=== PATIENT | female | born 1940 ===

== ENCOUNTER 2021-09-03 16:44 | Inpatient (IN) | payer OTHER ==
[~2021-09-03] VITALS: Ht 152.4 cm; Wt 54.4 kg
[2021-09-03] MEDS ORDERED: CARVEDILOL ER40 MG (17:16)
[2021-09-03] MEDS ORDERED: ADULT LOW DOSE81 M1 (17:16)
--- NOTE | 2021-09-03 17:37 | NUR ---
SE RECIBE PACIENTE FEMENINA ALERTA Y ORIENTADA EN [place] ESFERAS LA CUAL REFIERE PRESENTAR DIFICULTAD RESPIRATORIOA. SE MIDE SPO2 AL MOMENTO DE TRIAGE Y PRESENTA 53%. SE UBICA PACIENTE EN AREA DE CRITICO. SE NOTIFICA A EDEN CADET.
--- NOTE | 2021-09-03 17:40 | NUR ---
SE RECIBE PTE ALERTA Y ORIENTADA X 3 ESFERAS EN [place] DEL AREA DE TRIAGE A LA UNIDAD DE ICU 2. SE UBICA A PTE EN CAMA 1, SE CONECTA A MONITOR CARDIACO Y OXIMETRIA DE PULSO. SE CANALIZA EN BRAZO DERECHO AREA [place] DE EDEMA Y ERITEMA. SE REALIZAN MUESTRAS DE LABORATORIO BAJO MEDIDAS ASEPTICAS. SE INTENTA ALEX B/P POR MONITOR Y NO EL MISMO NO CRISTY LA MISMA. CRISTY B/P MANUAL Y PTE PRESENTA 65/45MMHG. EDEN.CADET ORDENA ADMINISTRAR LEVOPHED 8MG/DW5 250ML A BAJAR A 10ML/HR.SE ADMINISTRA MEDICAMENTO NORMA ORDEN MEDICA. SE REALIZA EKG.
--- NOTE | 2021-09-03 18:10 | NUR ---
EVALUA PTE. SE ADMINISTRA SOLUMEDROL 125MG IV NORMA ORDEN MEDICA. SE NOTIFICA GLORIA X. COLOCA BIPAP CON LOS SIGUIENTES PARAMETROS: IPAP:12,EPAP:6, FIO2:100%,RR:14. PTE INDICA QUE NO DESEA INTUBACION NI QUE SE REALICE CPR. PTE FIRMA DNR + DNI. SE GRACE A PTE EN CAMA CON BARANDAS ELEVADAS POR SEGURIDAD Y SE MANTIENE EN OBSERVACION POR CAMBIOS EN CONDICION MEDICA.
[2021-09-04] MEDS ORDERED: HYDRALAZINE HC100 MG (11:06)
[2021-09-04] MEDS ORDERED: TORSEMIDE20 MG (11:07)
[2021-09-04] MEDS ORDERED: LISINOPRIL20 MG (11:07)
[2021-09-04] MEDS ORDERED: CARVEDILOL25 M1 (11:07)
[2021-09-04] MEDS ORDERED: ISOSORBIDE DINI20 MG (11:07)
[2021-09-04] MEDS ORDERED: AMLODIPINE BESY10 MG (11:07)
== END 2021-09-10 17:38 | disposition left against medical advice (07) | DRG 640 ==
LOC: ER 16:44 → ICU-2 23:30 → MEDI 09-06 18:10
PROVIDERS: ADMIT Internal Medicine; ATTEND Internal Medicine
PROC: 5A09457 Assistance with Respiratory Ventilation, 24-96 Consecutive Hours, Continuous Positive Airway Pressure (ICD-10-PCS; principal; 2021-09-03)
PROC: 4A033R1 Measurement of Arterial Saturation, Peripheral, Percutaneous Approach (ICD-10-PCS; 2021-09-03)
PROC: 5A1D70Z Performance of Urinary Filtration, Intermittent, Less than 6 Hours Per Day (ICD-10-PCS; 2021-09-04)
PROC: 5A1D70Z Performance of Urinary Filtration, Intermittent, Less than 6 Hours Per Day (ICD-10-PCS; 2021-09-05)
PROC: 3E0F7SF Introduction of Other Gas into Respiratory Tract, Via Natural or Artificial Opening (ICD-10-PCS; 2021-09-06)
PROC: 4A12X4Z Monitoring of Cardiac Electrical Activity, External Approach (ICD-10-PCS; 2021-09-07)
PROC: 5A1D70Z Performance of Urinary Filtration, Intermittent, Less than 6 Hours Per Day (ICD-10-PCS; 2021-09-09)
DX: E87.79 Other fluid overload (principal); N18.6 End stage renal disease; I12.0 Hypertensive chronic kidney disease with stage 5 chronic kidney disease or end stage renal disease; Z99.2 Dependence on renal dialysis; D72.828 Other elevated white blood cell count; R09.02 Hypoxemia; Z20.822 Contact with and (suspected) exposure to COVID-19